=== PATIENT | male | born 1975 | race Caucasian/White ===

== ENCOUNTER 2021-03-29 19:34 | Emergency (ER) | payer BC ==
[~2021-03-29] VITALS: Ht 195.6 cm; Wt 217.7 kg
[~2021-03-29 19:34] MED LIST: ACTOS; ALLOPURINOL; DICLOFENAC; FLOMAX PO; LISINOPRIL; MET; NORCO 5-325 TA1 EACH PO; TRICOR
[2021-03-29 19:57] VITALS: BP 176/100
[2021-03-29] MEDS ORDERED: GLIPIZIDE 10 MG10 MG PO (20:03)
[2021-03-29] MEDS ORDERED: METFORMIN HCL500 M3 PO (20:04)
[2021-03-29] MEDS ORDERED: DOXYCYCLINE 10100 MG PO (21:33)
== END 2021-03-29 21:57 | disposition home or self-care (01) ==
LOC: M.ERS 19:34
DX: L02.214 Cutaneous abscess of groin (principal); L03.314 Cellulitis of groin; I10 Essential (primary) hypertension; E78.5 Hyperlipidemia, unspecified; Z79.899 Other long term (current) drug therapy; Z80.0 Family history of malignant neoplasm of digestive organs

== ENCOUNTER → 2021-04-01 | Emergency (ER) | payer BC ==
[~2021-04-01] VITALS: Ht 195.6 cm; Wt 217.7 kg
[~2021-04-01] MED LIST changes: +DOXYCYCLINE 10100 MG PO; +GLIPIZIDE 10 MG10 MG PO; +METFORMIN HCL500 M3 PO
[2021-04-01 10:40] VITALS: BP 183/94
== END ==
LOC: M.ERS 09:36
DX: L02.214 Cutaneous abscess of groin (principal); I10 Essential (primary) hypertension; E78.5 Hyperlipidemia, unspecified; Z79.899 Other long term (current) drug therapy; Z88.0 Allergy status to penicillin

== ENCOUNTER 2021-04-05 12:31 | Emergency (ER) | payer BC ==
[~2021-04-05] VITALS: Ht 195.6 cm; Wt 217.7 kg
[2021-04-05 12:49] VITALS: BP 168/97
[2021-04-05] MEDS ORDERED: DOXYCYCLINE 10100 MG PO (13:08)
== END 2021-04-05 13:17 | disposition home or self-care (01) ==
LOC: M.ERS 12:31
DX: L02.214 Cutaneous abscess of groin (principal); I10 Essential (primary) hypertension; E78.5 Hyperlipidemia, unspecified; Z98.890 Other specified postprocedural states; Z79.891 Long term (current) use of opiate analgesic; Z79.899 Other long term (current) drug therapy; Z79.84 Long term (current) use of oral hypoglycemic drugs; Z88.0 Allergy status to penicillin

== ENCOUNTER 2021-05-26 08:47 | Emergency (ER) | payer BC ==
[~2021-05-26] VITALS: Ht 195.6 cm; Wt 215.5 kg
[2021-05-26] MEDS ORDERED: LIPITOR10 MG PO (09:01)
[2021-05-26] MEDS ORDERED: OMEPRAZOLE 20 M20 M1 PO (09:01)
[2021-05-26] MEDS ORDERED: MAPAP325 MG PO (09:01)
[2021-05-26] MEDS ORDERED: ACTOS 30 MG TAB30 MG PO (09:01)
[2021-05-26] MEDS ORDERED: TESSALON PERLE100 MG PO (10:52)
[2021-05-26] MEDS ORDERED: ZOFRAN ODT4 MG DISSOLVE (10:52)
[2021-05-26 10:56] VITALS: BP 153/103
== END 2021-05-26 10:57 | disposition home or self-care (01) ==
LOC: M.ERS 08:47
DX: U07.1 COVID-19 (principal); I10 Essential (primary) hypertension; E78.5 Hyperlipidemia, unspecified; Z79.899 Other long term (current) drug therapy; Z88.0 Allergy status to penicillin

== ENCOUNTER 2021-07-10 09:05 | Emergency (ER) | payer BC ==
[~2021-07-10] VITALS: Ht 195.6 cm; Wt 213.2 kg
[~2021-07-10 09:05] MED LIST changes: +ACTOS 30 MG TAB30 MG PO; +LIPITOR10 MG PO; +MAPAP325 MG PO; +OMEPRAZOLE 20 M20 M1 PO; +TESSALON PERLE100 MG PO; +ZOFRAN ODT4 MG DISSOLVE
[2021-07-10] MEDS ORDERED: DOXYCYCLINE 10100 MG PO (10:44)
[2021-07-10] MEDS ORDERED: CENTANY30 GM TOP (10:44)
[2021-07-10 10:55] VITALS: BP 182/84
== END 2021-07-10 10:57 | disposition home or self-care (01) ==
LOC: M.ERS 09:05
DX: N49.2 Inflammatory disorders of scrotum (principal); I10 Essential (primary) hypertension; M10.9 Gout, unspecified; E78.5 Hyperlipidemia, unspecified; Z88.1 Allergy status to other antibiotic agents; Z88.0 Allergy status to penicillin; Z79.899 Other long term (current) drug therapy